=== PATIENT | female | born 1985 | race Caucasian/White ===

== ENCOUNTER 2020-06-04 10:19 | Emergency (ER) | payer BC, SELFPAY ==
[2020-06-04 10:20] VITALS: BP 148/85; PULSE 88; RESP 18; TEMP 36.7; O2SAT 98; BMI 38.2
--- NOTE | 2020-06-04 10:45 | HMH.EDUTC ---
[facility] [place] Disposition Clinical Impression: Allergic reaction Qualifiers: Encounter type: initial encounter Qualified Code(s): T78.40XA - Allergy, unspecified, initial encounter Disposition: Home, Self-Care Condition on Discharge: Good Instructions: DI for General Allergic Reactions, DI for Adverse Drug Reaction -- Allergic, Prednisone Additional Instructions: Look around at home and make sure to recheck to make sure that you may not have come into contact with something that may have caused your allergic reaction Discuss with your Family Doctor about your reaction, symptoms etc due to close proximity of your reaction to COVID vaccine 4 days prior Return if needed Straight to ER if any life threatening symptoms Prescriptions: predniSONE [Deltasone 10mg tablet] 10 mg PO BID 3 Days #6 tab Transmission Status: Received by [id number] Referrals: Polina Cantrell APRN [Primary Care Provider] - As needed Time of Disposition: 11:22 Medical Decision Making - Renoz Inquiry Pt receiving controlled substance: No Renzo was queried for this patient: No Vital Signs: 06/04/20 10:20 06/04/20 11:23 Temperature 98.1 F 98.1 F Temperature Source Oral Pulse Rate 88 Pulse Rate [Right Brachial] 88 Respiratory Rate 18 18 Blood Pressure 148/85 H Blood Pressure [Right Arm] 148/85 H Blood Pressure Mean [Right Arm] 106 Blood Pressure Source [Right Arm] Automatic Cuff Blood Pressure Position [Right Arm] Sitting 02 Sat by Pulse Oximetry 98 Oxygen Delivery Method Room Air Orders (Tests/Meds): ED MEDICATIONS Discontinued Medications Generic Name Dose Route Start Last Admin Trade Name Freq PRN Reason Stop Dose Admin Diphenhydramine HCl 25 mg 06/04/20 10:51 06/04/20 11:00 Diphenhydramine 25mg Capsule PO 06/04/20 10:52 25 mg ONCE ONE Administration Loratadine 10 mg 06/04/20 10:51 06/04/20 11:00 Loratadine 10mg Tablet PO 06/04/20 10:52 10 mg ONCE ONE Administration Methylprednisolone Sodium Succinate 125 mg 06/04/20 10:51 06/04/20 11:00 Methylprednisolone Sod Succ 125mg Vial IM 06/04/20 10:52 125 mg ONCE ONE Administration Medical Decision Narrative: Patient denies chance of , Spoke with pharmacy about medication due to recently Pfizer COVID vaccine and medications checked by pharmacy SoluMedrol, benadryl and claritin patient states that she took Pepcid prior to arrival swelling and rash much improved after taking medication [facility] [place] HPI - General Stated complaint: allergic reaction, fingers swollen Time Seen by Provider: 06/04/20 10:45 Mode of Arrival: Ambulatory Source of Information: Patient Limitations: No Limitations Description of Symptoms (Recalled from Triage Doc. by RN): PATIENT STATES LAST NIGHT SHE DEVELOPED HIVES AND ITCHING TO HER FACE AND CHEST LAST NIGHT, AND THIS MORNING SHE HAD NUMBNESS, PAIN AND SWELLING TO BILATERAL HAND. SHE STATES THE HIVES AND ITCHING ARE BETTER TODAY. UNKNOWN CAUSE OF REACTION HEENT Symptoms (Recalled from RN notes): No Resp Symptoms (Recalled from RN notes): No Skin Symptoms (Recalled from RN notes): Yes MS Symptoms (Recalled from RN notes): No Functional Status (Recalled from RN notes): WNL - History of Present Illness Provider Complaint: Patient state that she was seen and treated last week for URI States that she took the Pfizer COVID vaccine on States that she has been fine but then last night she started feeling itchy all over and having prickly like feeling on her skin States that she noticed she broke out in hives on her chest and arms States that she took some Pepcid and it helped some with the rash but she has been having swelling in her face and hand and has Prickly like feeling in her hands States that this morning she noticed the rash looked like it was coming back so she came in States that she has not changed anything at home and unsure of what is causing the reaction - Related Data Previous Rx's Medica
[2020-06-04 11:23] VITALS: BP 148/85; PULSE 88; RESP 18; TEMP 36.7; O2SAT 98
== END 2020-06-04 11:26 | disposition home or self-care (01) ==
PROVIDERS: Emergency Provider Nurse Practitioner; PCP Nurse Practitioner Family
DX: L50.0 Allergic urticaria (principal); T50.Z95A Adverse effect of other vaccines and biological substances, initial encounter; Z88.0 Allergy status to penicillin; Z88.5 Allergy status to narcotic agent
CPT/HCPCS: 96372; 99202; G0463

== ENCOUNTER 2021-05-30 16:56 | Emergency (ER) | payer BC, SELFPAY ==
[2021-05-30 17:45] VITALS: BP 147/91; PULSE 98; RESP 19; TEMP 36.7; O2SAT 99; BMI 41.8
--- NOTE | 2021-05-30 18:28 | HMH.EDUTC ---
[facility] [place] Clinical Impression: Bronchitis Disposition: Home, Self-Care Condition on Discharge: Good Instructions: Acute Bronchitis, DI for Cough -- Adult Additional Instructions: ? Stop Doxy and start Azithromycin today. Be sure to complete entire prescription even if feeling better ? Monitor temp. Tylenol every 4 hours as needed and / or ibuprofen every 6 hours as needed ( As long as your primary care physician has told you that it ok to take both. For fever/aches/pains ER if no less than 101 despite Tylenol or Motrin ? Humidifier/vaporizer or hot steamy shower ? Inhaler every 4-6 hours as needed like we discussed. If unsure how to use it, ask pharmacist to demonstrate how. Should help open airways and improve cough, wheezing, and shortness of breath *Promethazine DM cough syrup will cause drowsiness. Use only at night. No driving, operating machinery or caring for small children after taking it *Start steroid today. Helps with inflammation therefore, cough and wheezing. Follow directions on the package. Reviewed side effects. Patient reports taking them before. Follow up IMMEDIATELY for new or worsening of symptoms OR no noticeable improvement over the next 48-72 hours. 911 immediately for any life threatening symptoms such as chest pain or difficulty breathing Prescriptions: Albuterol Sulfate [Proventil-HFA 90mcg/puff Inh] 1 - 2 puffs IH Q6HP PRN #1 each PRN Reason: Shortness Of Breath Transmission Status: Received by [id number] methylPREDNISolone [Medrol 4mg tab] 4 mg PO DIRECTED #21 tab Transmission Status: Received by [id number] Promethazine/Dextromethorphan [Promethazine-Dm Syrup] 2.5 - 5 ml PO Q6H PRN #120 ml PRN Reason: Cough Transmission Status: Received by [id number] Azithromycin [Z-Bertin 250mg Tab] 250 mg PO DIRECTED #6 tab Transmission Status: Received by [id number] Referrals: Polina Cantrell APRN [Primary Care Provider] - As needed Forms: Work/School Release Medical Decision Making - Renzo Inquiry Pt receiving controlled substance: No Renzo was queried for this patient: No Vital Signs: 05/30/21 17:45 05/30/21 18:38 Temperature 98.1 F 98.1 F Temperature Source Oral Pulse Rate 98 H Pulse Rate [Right Brachial] 98 H Respiratory Rate 19 19 Blood Pressure 147/91 H Blood Pressure [Right Arm] 147/91 H Blood Pressure Mean [Right Arm] 109 Blood Pressure Source [Right Arm] Automatic Cuff Blood Pressure Position [Right Arm] Sitting 02 Sat by Pulse Oximetry 99 Oxygen Delivery Method Room Air Orders (Tests/Meds): ORDERS Category Date Time Status Full Resp Panel w/COVID ([facility]) Routine Lab 05/30/21 18:40 Received Medical Decision Narrative: Discussed CXR and patient declined at this time Patient denies states that she has IUD [facility] [place] HPI - General Stated complaint: cough, headache, congestion Time Seen by Provider: 05/30/21 18:35 Mode of Arrival: Ambulatory Source of Information: Patient Limitations: No Limitations Description of Symptoms (Recalled from Triage Doc. by RN): PATIENT C/O COUGH, HEADACHE, NECK PAIN AND CHEST CONGESTION X 1 WEEK HEENT Symptoms (Recalled from RN notes): Yes Resp Symptoms (Recalled from RN notes): Yes Skin Symptoms (Recalled from RN notes): No MS Symptoms (Recalled from RN notes): Yes Functional Status (Recalled from RN notes): WNL - History of Present Illness Provider Complaint: Patient states that she has been having cough and chest congestion for over a week State that she was put on Doxy about a week ago but hasnt helped much State that she is still coughing States that she is not coughing anything up and feels like she is having drianage in the back of her throat State that last night she was up most of the night coughing so she came in to get checked and see if there was something she could get to help with the coughing - Related Data Previous Rx's Medication Instructi
[2021-05-30 18:38] VITALS: BP 147/91; PULSE 98; RESP 19; TEMP 36.7; O2SAT 99
[2021-05-30 18:48] LABS: Adenovirus,PCR Not Detected (NotDetected); Bordetella Pertussis Not Detected (NotDetected); Chlamydophila Pneumoniae, PCR Not Detected (NotDetected); Coronavirus 19, PCR Not Detected (NotDetected); Coronavirus 229E Not Detected (NotDetected); Coronavirus NL63 Not Detected (NotDetected); Coronavirus OC43 Not Detected (NotDetected); Coronovirus HKU1,PCR Not Detected (NotDetected); Human Metapneumovirus Not Detected (NotDetected); Influenza A, PCR Not Detected (NotDetected); Influenza AH1, 2009 Not Detected (NotDetected); Influenza AH1, PCR Not Detected (NotDetected); Influenza AH3,PCR Not Detected (NotDetected); Influenza B, PCR Not Detected (NotDetected); Mycoplasma Pneumoniae, PCR Not Detected (NotDetected); Parainfluenza 1, PCR Not Detected (NotDetected); Parainfluenza 2, PCR Not Detected (NotDetected); Parainfluenza 3, PCR Not Detected (NotDetected); Parainfluenza 4, PCR Not Detected (NotDetected); Respiratory Syncytial Virus Not Detected (NotDetected); Rhinovirus/Enterovirus Not Detected (NotDetected)
== END 2021-05-30 18:46 | disposition home or self-care (01) ==
PROVIDERS: Emergency Provider Nurse Practitioner; PCP Nurse Practitioner Family
DX: J20.9 Acute bronchitis, unspecified (principal); Z20.822 Contact with and (suspected) exposure to COVID-19
CPT/HCPCS: 87581; 87632; 87798; 99202; C9803; G0463; U0003; U0005

== ENCOUNTER 2021-07-06 15:24 | Emergency (ER) | payer BC, SELFPAY ==
[2021-07-06 15:30] VITALS: BP 130/70; PULSE 109; RESP 19; TEMP 37.1; O2SAT 99; BMI 41.0
[2021-07-06 15:51] LABS: UTC Pregnancy Test, Urine Negative (Negative)
--- NOTE | 2021-07-06 15:51 | XR_ITS ---
PROCEDURE INFORMATION: Exam: XR Chest Exam date and time: 07/06/2021 3:51 PM Age: 35 years old Clinical indication: Patient HX: Cough x 9 weeks TECHNIQUE: Imaging protocol: XR of the chest. Views: 2 views. COMPARISON: No relevant prior studies available. FINDINGS: Airway: Patent Lungs: Unremarkable. No consolidation. Pleural spaces: Unremarkable. No pleural effusion. No pneumothorax. Heart/Mediastinum: Unremarkable. No cardiomegaly. Bones/joints: No acute skeletal abnormality or aggressive osseous lesion. IMPRESSION: No acute findings.
[2021-07-06 15:52] LABS: Apearance,Urine Clear (Clear); Bilirubin,Urine 1+ (Negative); Blood, Urine Negative (Negative); Color,Urine Amber (Yellow); Glucose,Urine (UA) Negative (Negative); Ketones,Urine TRACE (Negative); Protein,Urine 1+ (Negative); UTC Leukocyte Esterase,Urine Negative (Negative); UTC Nitrate,Urine Negative (Negative); Urobilinogen,Urine 1 EU/dl (0.2)
--- NOTE | 2021-07-06 15:57 | HMH.EDUTC ---
[facility] [place] Clinical Impression: Elevated liver enzymes Disposition: Still a Patient Condition on Discharge: Good Referrals: Polina Cantrell APRN [Primary Care Provider] - Time of Disposition: 16:58 (sent to ed report to ) Medical Decision Making - Renzo Inquiry Pt receiving controlled substance: No Vital Signs: 07/06/21 15:30 Temperature 98.8 F Temperature Source Oral Pulse Rate [Right Brachial] 109 H Respiratory Rate 19 Blood Pressure [Right Arm] 130/70 Blood Pressure Mean [Right Arm] 90 Blood Pressure Source [Right Arm] Automatic Cuff Blood Pressure Position [Right Arm] Sitting 02 Sat by Pulse Oximetry 99 Oxygen Delivery Method Room Air - Lab Data Lab Results 07/06/21 15:32: Urine Color Polina, Urine Appearance Clear, Urine pH 6.0, Ur Specific [place] 1.030, Urine Protein 1+, Urine Glucose (UA) Negative, Urine Ketones Trace, Urine Blood Negative, Urine Nitrate Negative, Urine Bilirubin 1+ A, Urine Urobilinogen 1, Ur Leukocyte Esterase Negative 07/06/21 15:49: [facility] Negative 07/06/21 16:00: WBC 7.2, RBC 4.67, Hgb 13.4, Hct 38.9, MCV 83.3, MCH 28.7, MCHC 34.5, RDW 14.9, Plt Count 161, MPV 8.4, Neut % (Auto) 29.7 L, Lymph % (Auto) 61.8 H, [place] % (Auto) 5.7, Eos % (Auto) 1.4, Baso % (Auto) 1.4, Neut # (Auto) 2.1, Lymph # (Auto) 4.4, [place] # (Auto) 0.4, Eos # (Auto) 0.1, Baso # (Auto) 0.1 07/06/21 16:00: Sodium 135 L, Potassium 3.6, Chloride 103, Carbon Dioxide 30, Anion Gap 5.6, BUN 10, Creatinine 0.90, Estimated Creat Clear 162, Estimated GFR 72, Est GFR ( Amer) 87, Glucose 95, Calcium 8.3 L, Total Bilirubin 1.6 H, AST 150 H, ALT 236 H, Alkaline Phosphatase 148 H, Total Protein 7.4, Albumin 4.2, Globulin 3.2, Albumin/Globulin Ratio 1.3, Amylase 72, Lipase 106 07/06/21 16:00: Monoscreen Negative Result diagrams: 07/06/21 16:00 07/06/21 16:00 Orders (Tests/Meds): ORDERS Category Date Time Status Chest XR 2 view (NOT portable) [XR chest 2V] Stat Exams 07/06/21 15:51 Taken Complete Blood Count Auto Diff Stat Lab 07/06/21 16:00 Results Hepatitis Panel (4) Routine Lab 07/06/21 16:47 Ordered [facility] [place] - General Chief complaint: [facility] Stated complaint: possible UTI and cough Time Seen by Provider: 07/06/21 15:57 Mode of Arrival: Ambulatory Source of Information: Patient Limitations: No Limitations Description of Symptoms (Recalled from Triage Doc. by RN): PATIENT C/O COUGH, FREQUENT URINATION, LOWER BACK PAIN, NAUSEA, AND DARK URINE X 3 DAYS HEENT Symptoms (Recalled from RN notes): No Resp Symptoms (Recalled from RN notes): Yes Skin Symptoms (Recalled from RN notes): No MS Symptoms (Recalled from RN notes): No Functional Status (Recalled from RN notes): WNL - History of Present Illness Provider Complaint: 35 yr old female presents for dark urine,body aches,nausea,vomiting up small amount for green bile like stuff, increase in outpt but drinking more for a few days, dry cough for 9 weeks. pt states the last time her urine looked like this she had a gallstone but has had gallbladder removed. - Related Data Allergies Allergy/AdvReac Type Severity Reaction Status Date / Time acetaminophen [From Lortab] Allergy Verified 06/04/20 10:45 amoxicillin Allergy Verified 07/06/21 15:56 hydrocodone [From Lortab] Allergy Verified 06/04/20 10:45 Penicillins Allergy Verified 06/04/20 10:45 - Worker's Comp Is this a Worker's Comp case?: No [facility] History - Hepatitis A Screen Drug use history?: No High risk sexual behaviors?: No History of sexually transmitted infection?: No Currently employed?: No Childcare worker?: No Do you have indoor plumbing?: Yes Do you have electricity?: Yes Attestation statement:: This patient has been screened for Hepatitis A risk factors. I have reviewed the patient's past medical history: Yes - Social History Alcohol Intake: never Occupational Status: other ROS Obtained: Yes Systems reviewed as appropriate &
[2021-07-06 16:36] LABS: Chloride 103 mmol/L (98-107); Sodium 135 mmol/L (136-145)
[2021-07-06 16:37] LABS: Potassium 3.6 mmoL/L (3.5-5.1)
[2021-07-06 16:39] LABS: Alanine Aminotransferase 236 U/L (12-78); Alkaline Phosphatase 148 U/L (38-126); Amylase 72 U/L (30-110); Anion Gap 5.6 mEq/L (5-15); Aspartate Amino Transferase 150 U/L (14-36); Basophils # 0.1 K/mm3 (0-0.2); Basophils % 1.4 % (0.1-2.0); Bilirubin,Total 1.6 mg/dl (0.2-1.3); Blood Urea Nitrogen 10 mg/dl (7-17); Calcium 8.3 mg/dl (8.4-10.2); Carbon Dioxide 30 mmol/L (22.0-30.0); Creatinine Clearance Estimated 162 mL/min (50-200); Eosinophils # 0.1 K/mm3 (0.0-0.4); Eosinophils % 1.4 % (0.1-12.0); Estimated Glomerular Filt Rate 72 ml/min (>60); GFR (African American) 87 ML/MIN (>60); Glucose 95 mg/dl (74-100); Hematocrit 38.9 % (37.0-47.0); Hemoglobin 13.4 g/dL (12.2-16.2); Lymphocytes # 4.4 K/mm3 (0.7-4.5); Lymphocytes % 61.8 % (10-50); Mean Corpuscular HGB Conc 34.5 g/dL (31.8-35.4); Mean Corpuscular Hemoglobin 28.7 pg (27.0-31.2); Mean Corpuscular Volume 83.3 fl (81-99); Mean Platelet Volume 8.4 fl (7.4-10.4); Monocytes # 0.4 K/mm3 (0.1-1.0); Monocytes % 5.7 % (1.7-9.3); Neutrophils # 2.1 K/mm3 (1.8-7.8); Neutrophils % 29.7 % (37.0-80.0); Platelet Count 161 K/mm3 (142-424); Red Blood Count 4.67 M/mm3 (4.20-5.40); Red Cell Distribution Width 14.9 % (11.5-17.5); White Blood Count 7.2 K/mm3 (4.8-10.8)
[2021-07-06 16:40] LABS: Albumin Level 4.2 g/dl (3.5-5.0); Albumin/Globulin Ratio 1.3 (1.1-1.8); Globulin 3.2 g/dL (1.3-3.2); Lipase 106 U/L (23-300); Total Protein,Serum 7.4 g/dl (6.3-8.2)
[2021-07-06 16:42] LABS: Monoscreen (Rapid) Negative (Negative)
[2021-07-06 16:43] LABS: MANUAL DIFFERENTIAL MANUAL DIFFERENTIAL (MANUAL DIFF)
--- NOTE | 2021-07-06 16:57 | CT_ITS ---
PROCEDURE INFORMATION: Exam: CT Abdomen And Pelvis With Contrast Exam date and time: 07/06/2021 4:57 PM Age: 35 years old Clinical indication: Other: Abnormal labs; Additional info: Dark urine, elevated lfts with hyperbiliary// did a second scan with liver delay of 5 mins those images are marked liver delay TECHNIQUE: Imaging protocol: Computed tomography of the abdomen and pelvis with contrast. Radiation optimization: All CT scans at this facility use at least one of these dose optimization techniques: automated exposure control; mA and/or kV adjustment per patient size (includes targeted exams where dose is matched to clinical indication); or iterative reconstruction. Contrast material: ISOVUE; Contrast volume: 75 ml; Contrast route: IV; COMPARISON: CR XR CHEST 2V 07/06/2021 3:58 PM FINDINGS: Lungs: Lung bases are clear. Liver: There is enlargement of the liver, measuring 19 cm. There is a diffuse decrease in hepatic parenchymal density, consistent with fatty infiltration. The liver is otherwise unremarkable. Gallbladder and bile ducts: Prior cholecystectomy. There is no evidence of biliary ductal dilation. Pancreas: Normal. No ductal dilation. Spleen: Normal. No splenomegaly. Adrenal glands: Normal. No mass. Kidneys and ureters: Normal. No hydronephrosis. Stomach and bowel: No bowel obstruction or significant bowel wall thickening. There is moderately excessive colonic stool content. Appendix: A normal appendix is identified. Intraperitoneal space: There is a very small amount of physiologic free pelvic fluid present. There is no free intraperitoneal air. Vasculature: Unremarkable. No abdominal aortic aneurysm. Lymph nodes: No retroperitoneal, pelvic, or mesenteric adenopathy. Urinary bladder: The bladder is decompressed. Reproductive: Unremarkable as visualized. Bones/joints: No acute skeletal abnormality or aggressive osseous lesion. Soft tissues: There is a fat-containing umbilical hernia. IMPRESSION: 1. Hepatomegaly and hepatic steatosis. 2. No acute abdominopelvic pathology. 3. Incidental findings as above.
--- NOTE | 2021-07-06 16:57 | PC.NURSE ---
PATIENT SENT TO ER PER Lito MCCABE APRN FOR FURTHER EVALUATION. REPORT GIVEN TO Marissa DOLAN RN
--- NOTE | 2021-07-06 17:14 | HMH.EDGENADL ---
ED Disposition Clinical Impression: Elevated liver enzymes, Hepatic steatosis Disposition: Home, Self-Care Condition on Discharge: Good Instructions: DI for Nonalcoholic Fatty Liver Disease Referrals: Polina Cantrell APRN [Primary Care Provider] - - Critical Care Critical Care Time: No Attestation: On 07/06/21, the high probability of a clinically significant, sudden or life threatening deterioration of the following system(s) required my full and direct attention, intervention and personal management. The time I documented below is in addition to time spent performing reported procedures but includes the following listed in this critical care notation. Medical Decision Making - Renzo Inquiry Pt receiving controlled substance: No Vital Signs: 07/06/21 15:30 07/06/21 17:22 Temperature 98.8 F Temperature Source Oral Pulse Rate [Right Brachial] 109 H 109 H Respiratory Rate 19 20 Blood Pressure [Right Arm] 130/70 Blood Pressure Mean [Right Arm] 90 Blood Pressure Source [Right Arm] Automatic Cuff Blood Pressure Position [Right Arm] Sitting 02 Sat by Pulse Oximetry 99 99 Oxygen Delivery Method Room Air Room Air - Lab Data Lab Results 07/06/21 15:32: Urine Color Polina, Urine Appearance Clear, Urine pH 6.0, Ur Specific [place] 1.030, Urine Protein 1+, Urine Glucose (UA) Negative, Urine Ketones Trace, Urine Blood Negative, Urine Nitrate Negative, Urine Bilirubin 1+ A, Urine Urobilinogen 1, Ur Leukocyte Esterase Negative 07/06/21 15:49: [facility] Negative 07/06/21 16:00: WBC 7.2, RBC 4.67, Hgb 13.4, Hct 38.9, MCV 83.3, MCH 28.7, MCHC 34.5, RDW 14.9, Plt Count 161, MPV 8.4, Neut % (Auto) 29.7 L, Lymph % (Auto) 61.8 H, [place] % (Auto) 5.7, Eos % (Auto) 1.4, Baso % (Auto) 1.4, Neut # (Auto) 2.1, Lymph # (Auto) 4.4, [place] # (Auto) 0.4, Eos # (Auto) 0.1, Baso # (Auto) 0.1, Total Counted 100, Neutrophils % (Manual) 18 L, Lymphocytes % (Manual) 60 H, Monocytes % (Manual) 18 H, Eosinophils % (Manual) 2, Basophils % (Manual) 2.0 H, Platelet Estimate Normal 07/06/21 16:00: Sodium 135 L, Potassium 3.6, Chloride 103, Carbon Dioxide 30, Anion Gap 5.6, BUN 10, Creatinine 0.90, Estimated Creat Clear 162, Estimated GFR 72, Est GFR ( Amer) 87, Glucose 95, Calcium 8.3 L, Total Bilirubin 1.6 H, AST 150 H, ALT 236 H, Alkaline Phosphatase 148 H, Total Protein 7.4, Albumin 4.2, Globulin 3.2, Albumin/Globulin Ratio 1.3, Amylase 72, Lipase 106 07/06/21 16:00: Monoscreen Negative 07/06/21 16:00: ESR 19 07/06/21 16:00: C-Reactive Protein 26.4 H 07/06/21 16:00: PT 11.7, INR 1.04 07/06/21 16:00: Direct Bilirubin 0.5 H Result diagrams: 07/06/21 16:00 07/06/21 16:00 Orders (Tests/Meds): ED MEDICATIONS Discontinued Medications Generic Name Dose Route Start Last Admin Trade Name Freq PRN Reason Stop Dose Admin Iopamidol 75 ml 07/06/21 18:05 07/06/21 18:06 Iopamidol-370 (76%);100ml Bottle IV 07/06/21 18:06 75 ml ONCE ONE Administration Sodium Chloride 10 ml 07/06/21 18:05 07/06/21 18:06 Sodium Chloride 0.9% 10ml Syr (Rad Only) IV 07/06/21 18:06 10 ml ONCE ONE Administration ORDERS Category Date Time Status Hepatitis Panel (4) Routine Lab 07/06/21 16:00 Received Medical Decision Narrative: 35 yo female presents for dark urine, n/v, low back pain, night sweats for 2-3 days with elevated LFTs and tbili elevation in UTC earlier today. She is hds, tachycardic on initial vitals, normotensive, in nad, on room air, afebrile. UA obtained in UTC with 1+ bilirubin. CXR wnl. AST 150, ALT 236, ALP 148, t bili 1.6. INR 1.04. PT 11.7. CT shows enlargement of liver 19 mm, signs of hepatic steatosis. Remains in NAD, well appearing, HDS, on room air. Advised pt to f/u within 1 week, which she states she does not have pcp currently but knows of one in mind and will follow up within 1 week. Given ED return precautions. General Adult HPI - General Stated complaint: possible UTI and cough Time Seen by
[2021-07-06 17:20] LABS: INR 1.04 (0.9-1.1); Prothrombin Time 11.7 seconds (10.1-12.5)
[2021-07-06 17:21] LABS: C-Reactive Protein 26.4 mg/L (0-4)
[2021-07-06 17:22] VITALS: PULSE 109; RESP 20; O2SAT 99; BMI 40.8
[2021-07-06 17:27] LABS: Eosinophils % 2 % (0-3); Lymphocytes % 60 % (10-50); Monocytes % 18 % (2-9); Neutrophils % 18 % (42-76); Platelet Estimate Normal; Total Cells Counted 100
[2021-07-06 17:31] LABS: Erythrocyte Sedimentation Rate 19 mm/hr (0-20)
[2021-07-06 17:36] LABS: Bilirubin,Direct 0.5 mg/dl (0.0-0.4)
[2021-07-06 19:59] VITALS: BP 124/75; PULSE 91; RESP 20; TEMP 37.1; O2SAT 99
[2021-07-09 09:18] LABS: Hep A Ab, IgM Negative (Negative); Hepatitis B Core Antibody IgM Negative (Negative); Hepatitis B Surface Antigen Negative (Negative); Hepatitis C Antibody <0.1 s/co ratio (0.0-0.9)
== END 2021-07-06 20:01 | disposition home or self-care (01) ==
LOC: UTC 15:29 → ER 16:54
PROVIDERS: Nurse Practitioner Family; Emergency Provider Student in an Organized Health Care Education/Training Program; PCP Nurse Practitioner Family
DX: K76.0 Fatty (change of) liver, not elsewhere classified (principal); K21.9 Gastro-esophageal reflux disease without esophagitis; M54.50 Low back pain, unspecified
CPT/HCPCS: 71046; 74177; 80053; 80074; 81003; 81025; 82150; 82248; 83690; 85007; 85025; 85610; 85651; 86140; 86318; 99282; 99284; Q9967